=== PATIENT | male | born 1935 | race Caucasian/White ===

== ENCOUNTER 2021-04-28 19:37 | Inpatient (IN) | payer MEDICARE, OTHER ==
[~2021-04-28] VITALS: Ht 160 cm; Wt 67.1 kg
[2021-04-28 20:07] LABS: BASOPHILS % (AUTO) 1.5 % (0.0-2.0); EOSINOPHILS % (AUTO) 5.4 % (1.0-6.0); HEMATOCRIT 36.7 % (41-53); HEMOGLOBIN 12.1 g/dL (13.5-17.5); LYMPHOCYTES # (AUTO) 2.5 K/uL (1.0-4.8); LYMPHOCYTES % (AUTO) 40.6 % (22.0-44.0); MEAN CORPUSCULAR HEMOGLOBIN 32.3 pg (26.0-34.0); MEAN CORPUSCULAR HGB CONC 32.9 G/dL (31.0-37.0); MEAN CORPUSCULAR VOLUME 98 fL (80-100); MONOCYTES # (AUTO) 0.5 K/uL (0.1-1.0); MONOCYTES % (AUTO) 7.5 % (2.0-9.0); NEUTROPHILS # (AUTO) 2.8 K/uL (1.8-7.7); PLATELET COUNT (AUTO) 111 K/uL (150-450); RED BLOOD CELL COUNT(AUTO) 3.74 MIL/uL (4.50-5.90)
[2021-04-28 20:16] LABS: ANION GAP 7 mmol/L (8-16); CALCIUM, TOTAL 9.3 mg/dL (8.8-10.5); CARBON DIOXIDE 24 mmol/L (22-29); CHLORIDE 104 mmol/L (98-107); CREATININE 1.67 mg/dL (0.60-1.30); GLOMERULAR FILTR. RATE CALC 39 mL/min (>60); GLUCOSE,RANDOM 228 mg/dL (70-110); POTASSIUM 4.5 mmol/L (3.5-5.1); SODIUM SERUM 135 mmol/L (136-145); UREA NITROGEN, BLOOD 28 mg/dL (7-18)
[2021-04-28 20:22] LABS: APPEARANCE,URINE CLEAR (CLEAR); BILIRUBIN,URINE NEGATIVE (NEGATIVE); GLUCOSE, URINE (UA) 250 mg/dL (NEGATIVE); KETONES,URINE NEGATIVE (NEGATIVE); LEUKOCYTE ESTERASE ,URINE NEGATIVE (NEGATIVE); NITRATE,URINE NEGATIVE (NEGATIVE); OCCULT BLOOD,URINE NEGATIVE (NEGATIVE); PH,URINE 5.5 (5.0-8.0); PROTEIN,URINE NEGATIVE (NEGATIVE); UROBILINOGEN,URINE 0.2 mg/dL (<=1.0)
[2021-04-28 20:22] LABS: ALANINE AMINOTRANSFERASE 33 U/L (12-78); ALBUMIN 3.9 g/dL (3.4-5.0); ALKALINE PHOSPHATASE 59 U/L (46-116); ASPARTATE AMINOTRANSFERASE 27 U/L (15-37); BILIRUBIN,TOTAL 0.4 mg/dL (0.1-1.0); TOTAL PROTEIN, SERUM 7.3 g/dL (6.4-8.2)
[2021-04-28 20:22] LABS: COVID AG,FIA SOURCE NASOPHARYNGEAL
[2021-04-28 20:27] LABS: AMPHET/METH SCREEN,URINE NEGATIVE (NEGATIVE); BARBITURATE SCREEN, URINE NEGATIVE (NEGATIVE); BENZODIAZEPINES SCREEN,URINE NEGATIVE (NEGATIVE); CANNABINOID SCREEN,URINE NEGATIVE (NEGATIVE); COCAINE SCREEN,URINE NEGATIVE (NEGATIVE); METHADONE SCREEN, URINE NEGATIVE (NEGATIVE); OPIATE SCREEN,URINE NEGATIVE (NEGATIVE); PHENCYCLIDINE SCREEN,URINE NEGATIVE (NEGATIVE)
[2021-04-28] MEDS ORDERED: ROSU20TA73 PO (20:35)
[2021-04-28] MEDS ORDERED: TADA5TAB13 PO (20:35)
[2021-04-28] MEDS ORDERED: OLME40TA8 PO (20:35)
[2021-04-28] MEDS ORDERED: AMLO-258 PO (20:52)
[2021-04-28 21:01] LABS: BACTERIA,URINE None Seen /HPF (None Seen); RBC,URINE None Seen /HPF (0-2); SQUAMOUS EPITHELIAL CELL,UR Rare /LPF (None Seen); WBC,URINE 0-2 /HPF (0-5)
[2021-04-28] MEDS ORDERED: LORazepam 2 MG TABLET PO PRN (22:30)
[2021-04-28] MEDS ORDERED: ZOLPIDEM TARTRATE 10 MG TABLET PO PRN (22:30)
[2021-04-28] MEDS ORDERED: QUEtiapine FUMARATE 100 MG TABLET PO PRN (22:30)
[2021-04-29] MEDS ORDERED: IBUPROFEN 400 MG TABLET PO PRN (07:15)
[2021-04-29] MEDS ORDERED: NICOTINE 14 MG/24 HOUR PATCH TD PRN (07:15)
[2021-04-29] MEDS ORDERED: ALBUTEROL SULFATE HFA 90 MCG/PUFF 8 GM INHALER IH PRN (07:15)
[2021-04-29] MEDS ORDERED: LOPERAMIDE HCL 2 MG CAPSULE PO PRN (07:15)
[2021-04-29] MEDS ORDERED: GuaiFENesin/D-METHORPHAN [SUGAR-FREE] 200-20MG/10 ML SYRUP UDCUP PO PRN (07:15)
[2021-04-29] MEDS ORDERED: DOCUSATE SODIUM 100 MG CAPSULE PO PRN (07:15)
[2021-04-29] MEDS ORDERED: PETROLATUM,WHITE 28 GM JELLY TP PRN (07:15)
[2021-04-29] MEDS ORDERED: ACETAMINOPHEN 325 MG TABLET PO PRN (07:15)
[2021-04-29] MEDS ORDERED: MAG HYDROX/AL HYDROX/SIMETH ES 30 ML SUSPENSION UDCUP PO PRN (07:15)
[2021-04-29] MEDS ORDERED: CloNIDine HCL 0.1 MG TABLET PO PRN (07:15)
[2021-04-29] MEDS ORDERED: ONDANSETRON HCL 4 MG TABLET PO PRN (07:15)
[2021-04-29] MEDS ORDERED: MAGNESIUM HYDROXIDE SUSPENSION 30 ML UDCUP PO PRN (07:15)
[2021-04-29] MEDS: AmLODIPine BESYLATE 10 MG TABLET PO SCH (09:40)
[2021-04-29] MEDS: OLMESARTAN MEDOXOMIL 40 MG TABLET PO SCH (09:40)
[2021-04-29] MEDS: ROSUVASTATIN CALCIUM 20 MG TABLET PO SCH (09:41)
[2021-04-29 09:44] VITALS: BP 150/68
[2021-04-29] MEDS ORDERED: METF-445 PO (15:16)
[2021-04-29 16:40] VITALS: BP 108/60
[2021-04-30] MEDS: OLMESARTAN MEDOXOMIL 40 MG TABLET PO SCH (08:01)
[2021-04-30] MEDS: ROSUVASTATIN CALCIUM 20 MG TABLET PO SCH (08:01)
[2021-04-30] MEDS: ARIPiprazole 5 MG TABLET PO SCH (08:01)
[2021-04-30] MEDS: AmLODIPine BESYLATE 10 MG TABLET PO SCH (08:01)
[2021-04-30 09:41] VITALS: BP 128/64
[2021-04-30 16:00] VITALS: BP 115/60
[2021-05-01 00:15] VITALS: BP 120/62
[2021-05-01] MEDS: AmLODIPine BESYLATE 10 MG TABLET PO SCH (08:17)
[2021-05-01] MEDS: OLMESARTAN MEDOXOMIL 40 MG TABLET PO SCH (08:18)
[2021-05-01] MEDS: ROSUVASTATIN CALCIUM 20 MG TABLET PO SCH (08:18)
[2021-05-01] MEDS: ARIPiprazole 5 MG TABLET PO SCH (08:18)
[2021-05-01 08:20] VITALS: BP 125/58
[2021-05-01] MEDS ORDERED: ARIP15TA27 PO ×2 (10:25→10:31)
[2021-05-02] MEDS ORDERED: ARIPiprazole 5 MG TABLET PO SCH (09:00)
== END 2021-05-01 13:30 | disposition home or self-care (01) | DRG 885 ==
LOC: EMS 19:37 → 3EI 04-29 02:13
PROVIDERS: ADMIT Psychiatry & Neurology Child & Adolescent Psychiatry; ATTEND Psychiatry & Neurology Child & Adolescent Psychiatry
DX: F33.2 Major depressive disorder, recurrent severe without psychotic features (principal); N18.9 Chronic kidney disease, unspecified; E11.65 Type 2 diabetes mellitus with hyperglycemia; R45.851 Suicidal ideations; E11.22 Type 2 diabetes mellitus with diabetic chronic kidney disease; E78.00 Pure hypercholesterolemia, unspecified; E78.5 Hyperlipidemia, unspecified; F17.200 Nicotine dependence, unspecified, uncomplicated; I12.9 Hypertensive chronic kidney disease with stage 1 through stage 4 chronic kidney disease, or unspecified chronic kidney disease; D63.8 Anemia in other chronic diseases classified elsewhere; Z20.822 Contact with and (suspected) exposure to COVID-19; Z86.73 Personal history of transient ischemic attack (TIA), and cerebral infarction without residual deficits; Z79.899 Other long term (current) drug therapy; Z79.84 Long term (current) use of oral hypoglycemic drugs
CPT/HCPCS: 71045; 80053; 81001; 84484; 85025; 93005; 99285; G0480; 36415-L1; 36415-TC